=== PATIENT | male | born 1955 | race Caucasian/White ===

== ENCOUNTER 2022-11-01 14:58 | Emergency (ER) | payer MEDICARE, SELFPAY ==
--- NOTE | ~2022-11-01 | XR_ITS ---
EXAMINATION: XR chest 2V DATE: 11/01/2022 16:00 INDICATION: Shortness of breath TECHNIQUE: PA and lateral views of the chest are obtained. COMPARISON: None available FINDINGS: There are minimal airspace opacities of the lung bases. No pleural effusion or pneumothorax . The cardiomediastinal silhouette is normal. There is mild thoracic spondylosis. A triple lead cardi ac pacemaker of the left chest wall ends with leads in expected locations. Bilateral gynecomastia is noted. 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 IMPRESSION: 1. Minimal bibasilar airspace opacities, consistent with atelectasis versus pneumonia. Reviewed, dictated and finalized at location A. IMPRESSION: 1. Minimal bibasilar airspace opacities, consistent with atelectasis versus pne umonia.
[2022-11-01 15:11] VITALS: BP 106/77; PULSE 71; RESP 16; TEMP 37.2; O2SAT 93
--- NOTE | 2022-11-01 15:19 | ED.GENADULT ---
HPI - General Adult General Chief complaint: Upper Respiratory Infection Stated complaint: SOB Time Seen by Provider: 11/01/22 15:17 Source: patient, RN notes reviewed and old records reviewed Mode of arrival: ambulatory Limitations: no limitations History of Present Illness HPI narrative: 66 year old male who presents to [facility] with complaints of shortness of breath since yesterday. Patient reports that he has history of COPD, has history of CHF, heart disease and has AICD. Patient reports that he has been in a smoky environment and he has been coughing up some greenish drainage. He states that he has been using his inhalers but not helping much, his nebulizer is at his home which is not in area. Patient admits that he does still smoke cigarettes on occasions Patient denies any chest pain, admits to feelings of wheezing and dyspnea especially with exertion. States soreness and some white spots in mouth thinks he has thrush also. MD complaint: shortness of breath Onset (ago): day(s) (1) Exacerbating factors: other (exertion) Treatments prior to arrival: other (inhalers) Related Data Home Medications Medication Instructions Recorded Confirmed albuterol sulfate 90 mcg/actuation inhalation 11/01/22 aerosol inhaler carvedilol 25 mg tablet mg 11/01/22 clopidogrel 75 mg tablet mg 11/01/22 fluticasone fur. 100 mcg-umeclid inhalation 11/01/22 62.5 mcg-vilant 25 mcg inhalat.powder (Trelegy Ellipta) furosemide 40 mg tablet mg 11/01/22 lisinopril 5 mg tablet mg 11/01/22 pravastatin 40 mg tablet mg 11/01/22 Allergies Allergy/AdvReac Type Severity Reaction Status Date / Time No Known Allergies Allergy Verified 11/01/22 15:15 Review of Systems Review of Systems: CONSTITUTIONAL: Denies fever, chills, or sweats. EYES: Denies visual changes, redness, or discharge. ENT: Reports rhinorrhea, congestion, no sore throat, or otalgia.states some soreness of mouth CARDIOVASCULAR: Denies chest pain, palpitations, positive for edema pedal RESPIRATORY: Reports cough or dyspnea. GASTROINTESTINAL: Denies abdominal pain, nausea, vomiting, or diarrhea. GENITOURINARY: Denies dysuria or hematuria. SKIN: Denies rash or itching. MUSCULOSKELETAL: Denies back pain, joint pain, or myalgia. NEUROLOGIC: Denies headache, numbness, or weakness. PSYCHIATRIC: Denies anxiety or depression. All systems reviewed & are unremarkable except as noted in HPI and below PMFSH Past Medical History Medical History (Updated 11/03/22 @ 09:05 by Renee Amezcua NP) Atrial fibrillation CAD (coronary artery disease) CHF NYHA class II (symptoms with moderately strenuous activities) COPD (chronic obstructive pulmonary disease) Hyperlipidemia Hypertension PVD (peripheral vascular disease) Surgical History Surgical History (Updated 11/03/22 @ 09:02 by Renee Amezcua NP) AICD (automatic cardioverter/defibrillator) present H/O cardiac catheterization History of heart artery stent Social History Social History (Updated 11/03/22 @ 09:00 by Renee Amezcua NP) Smoking status: Current some day smoker Tobacco type: cigarettes Alcohol intake: current Alcohol use details: social Substance use type: does not use Gender identity (if verbalized by the patient): Male Comments At time of signature, agree with nursing past medical, surgical, social and family history. There is no relevant family history pertinent to the presenting complaint Exam Narrative: GENERAL: Well-appearing, well-nourished,poor hygiene, and in no acute distress. HEAD: Normocephalic, atraumatic. EYES: PERRLA and EOMI. ENT: Nares clear, no rhinorrhea or epistaxis. Mucous membranes moist.TM's normal, throat pink with no swelling, some redness of floor of mouth and some white spots. NECK: Supple.no lymphadenopathy CHEST: Scattered wheezing on auscultation coarse in bases,. No acute respiratory distress.SAO2 93% on room air, improve aeration after respiratory n
[2022-11-01] MEDS: ALBUTEROL SULFATE NEB 2.5 MG/3 ML INH INHALATION (15:26)
[2022-11-01] MEDS: IPRATROPIUM BR 0.02% INH SOLN 0.5 MG/2.5 ML VIAL INHALATION (15:26)
--- NOTE | 2022-11-01 15:50 | PC.NURSE ---
pulse ox 95% ra, hr 65, stated tx helped and feeling better. taken to xray.
[2022-11-01 16:24] VITALS: PULSE 65; RESP 20; O2SAT 95
== END 2022-11-01 16:26 | disposition home or self-care (01) ==
PROVIDERS: Emergency Provider Registered Nurse
DX: J44.1 Chronic obstructive pulmonary disease with (acute) exacerbation (principal); B37.0 Candidal stomatitis; I11.0 Hypertensive heart disease with heart failure; I50.9 Heart failure, unspecified; I25.10 Atherosclerotic heart disease of native coronary artery without angina pectoris; I48.91 Unspecified atrial fibrillation; E78.5 Hyperlipidemia, unspecified; I73.9 Peripheral vascular disease, unspecified; Z95.810 Presence of automatic (implantable) cardiac defibrillator; Z95.5 Presence of coronary angioplasty implant and graft; Z72.0 Tobacco use
CPT/HCPCS: 71046; 94640; 99203; G0463